=== PATIENT | female | born 1965 | race African-American/Black ===

== ENCOUNTER → 2017-07-09 | Outpatient (CLI) | payer OTHER ==
[2015-01-05 18:10] VITALS: BP 124/76
[~2017-07-09] MED LIST: ATOR20TA58 PO; CELE200C PO; CLOP75TA PO; FLUT1DIS IH; LANS30CA PO; LISI-334 PO; LORA10TA3 PO; MONT10TA9 PO; PROAIR HFA8.5 GM INH; SERT50TA PO; SOLI10TA2 PO; VARE1TAB5 PO
--- NOTE | 2017-07-09 18:10 | KCIC ---
Bilateral digital screening mammograms: Reason for examination: Routine screening. Comparison is made to previous studies dated 04/20/2014 and 03/01/2012. The skin and nipples show no abnormalities. No abnormal axillary lymph nodes are seen. The breast parenchyma shows scattered fibroglandular density. (Breast density: Category B.) There appears to be new 6 mm nodular density at the 11:30 C position of the left breast. Recommend further evaluation with ultrasound. There are no other dominant masses, suspicious calcifications or architectural distortions. Impression: 6 mm nodular density at the 11:30 C position of the left breast. Recommend further evaluation with ultrasound. BI-RADS Category 0: Incomplete. Ultrasound follow-up is recommended. "Our facility is accredited by the [employer] Mammography Program." This patient's information has been entered into a reminder system for the patient to be notified with the results of her examination and a target date for the next mammogram. Electronically signed by: Yahaira Macario MD (07/09/2017 6:07 PM) [id number]
== END | disposition home or self-care (01) ==
LOC: KCIC MAMMO 11:41
PROVIDERS: ATTEND Family Medicine
DX: Z12.31 Encounter for screening mammogram for malignant neoplasm of breast (principal)
CPT/HCPCS: G0202; 77067

== ENCOUNTER → 2017-07-15 | Outpatient (CLI) | payer OTHER ==
[2015-01-05 18:10] VITALS: BP 124/76
--- NOTE | 2017-07-15 14:29 | RAD ---
Examination:ultrasound left breast History: History of new left breast nodule Comparison: Mammogram from 07/09/2017. Findings: There is a hypoechoic mass measuring 6 mm identified in the left breast 8 cm from the nipple at 10:30 position with posterior acoustic shadowing. The margins of the mass appears slightly hyperechoic and angular. Impression: Suspicious finding. Recommend ultrasound-guided biopsy. BI-RADS Category 4. Suspicious finding. Patient was informed of the findings. Patient was entered into a mammographic recommend system for immediate recall. A voicemail was left at ordering physician's office.
== END | disposition home or self-care (01) ==
LOC: KCIC US 13:45
PROVIDERS: ATTEND Family Medicine
DX: R92.8 Other abnormal and inconclusive findings on diagnostic imaging of breast (principal)
CPT/HCPCS: 76641

== ENCOUNTER → 2017-08-19 | Outpatient (CLI) | payer OTHER ==
[~2017-08-19] VITALS: Ht 162.6 cm; Wt 70.3 kg
[~2017-08-19] MED LIST changes: +COLC0.6T34 PO; +PREG50CA PO
[2017-08-19 09:57] VITALS: BP 142/82
--- NOTE | 2017-08-19 16:21 | RAD ---
Indication suspect mass seen on recent mammography and ultrasound. Note is made of the screening breast examination 07/09/2017 in the targeted left breast ultrasound 07/15/2017. As a result of those examinations ultrasound-guided biopsy of a mass at the 10:30 position of the left breast was advised. Pulmonary ultrasound images were obtained and the known finding at the 10:30 position of the breast was identified. [employer] images were saved. Image guided biopsy was discussed with the patient. The risks of infection and bleeding were outlined. The small possibility of pneumothorax was discussed. The patient understood the risks and nature of the biopsy and wished to proceed. The skin was prepped and draped in the routine fashion. Local anesthesia was accomplished with 1% lidocaine. A 14-gauge coaxial biopsy system was utilized. After the first biopsy throw the target mass could not be identified again. It was felt that possibly the lidocaine infiltration obscured the target mass. A clip was then placed at the site of the biopsy. The patient was transferred to a dedicated mammographic suite and post clip deployment images were obtained. Those images are compared to the examination 07/09/2017. Particularly on the CC image the nodule seen on the study 07/09/2017 is no longer seen and the biopsy clip appears to be appropriately positioned. On the MLO and ML images no definite residual nodule is seen ( as on the screening exam). The patient was rescanned with ultrasound approximately 3 hours after the initial biopsy. In addition to images submitted by the technologist a targeted ultrasound examination was performed by me and I could not identify the mass seen on the initial images prior to the biopsy. The target mass may have represented a complicated cyst which was collapsed during the biopsy procedure. Assuming benign pathology from the tissue obtained a follow-up targeted ultrasound and mammogram of the left breast is suggested in 3 months to document stability. IMPRESSION: Nonvisualization of target mass after a single biopsy throw. Assuming benign pathology follow-up targeted ultrasound and mammography of the left breast is suggested in 3 months
--- NOTE | 2017-08-23 13:30 | PATHOLOGY ---
PATHOLOGY REPORT * * * * * * * * FINAL DIAGNOSIS: Left breast, core biopsies: - Focal fibrosis, chronic inflammation, and granulomatous inflammation. (JPM:pit; 08/23/2017) COMMENT: Sections of the left breast core biopsy reveal a segment of fibroadipose tissue showing focal fibrosis, chronic inflammation, and granulomatous inflammation. The latter focus appears to be associated with a microcystic focus of fat necrosis. The larger focus of fibrosis and chronic inflammation contains admixed large cells having fairly abundant amounts of eosinophilic to faintly pigmented cytoplasm and possessing round to ovoid nuclei containing small nucleoli. A limited panel of immunoperoxidase stains is obtained and yields the following results: AE1-AE3 (A1): Large cells negative. CD68 (A1): Large cells positive consistent with histiocytes. There is no evidence of malignancy. (JPM:pit; 08/23/2017) Special Stains: Immunoperoxidase for AE1-AEC and CD68. REPORT ELECTRONICALLY SIGNED BY: Simone Harmon M.D. DATE/TIME: 08/23/2017 13:29 * * * * * * * * GROSS PATHOLOGY: Received in formalin labeled "Cristal Brown, left breast," is a single needle core of yellow-hollis fibrofatty tissue measuring 2.1 x 0.2 x 0.2 cm in greatest dimensions. The tissue is submitted in its entirety in cassette A1. The cold ischemic time is 5 minutes. The total formalin fixation time is 12 hours and 15 minutes. (TSD; 08/19/2017) INITIAL CPT CODE(S): A; 89130, 49132, 99215 Professional services performed by [facility] at [address] [address] Technical services performed by [facility] at [address] [place] [address], [facility] [address] [address]. SPECIMEN(S) RECEIVED: A.Left breast mass CLINICAL HISTORY: Left breast mass PATIENT: CRISTAL BROWN V /AGE: 111/29/1965 (Age: 51) PATIENT #: [id number] ALT CASE #: SPECIMEN COLLECTION DATE: 08/19/2017 SPECIMEN RECEIVED DATE: 08/19/2017 [facility] - [address] [place] [address] - PHONE: [phone] * * * END OF REPORT * * *
== END | disposition home or self-care (01) ==
LOC: US 09:18
PROVIDERS: ATTEND Surgery
DX: N63.20 Unspecified lump in the left breast, unspecified quadrant (principal)
CPT/HCPCS: 76942; C1713; G0206; 19081; 77065

== ENCOUNTER → 2017-11-23 | Outpatient (CLI) | payer OTHER | END | disposition home or self-care (01) | LOC: KCIC MAMMO 08:25 | DX: N63.20 Unspecified lump in the left breast, unspecified quadrant (principal) | CPT/HCPCS: 76641; 77065 ==

== ENCOUNTER → 2018-07-20 | Outpatient (CLI) | payer OTHER ==
[2017-08-19 09:57] VITALS: BP 142/82
--- NOTE | 2018-07-20 11:02 | RAD ---
DATE: 07/20/2018 EXAM: DIGITAL DIAGNOSTIC BILATERAL, BREAST LEFT HISTORY: Biopsy follow-up COMPARISON: 11/23/2017, 08/19/2017, 07/09/2017 This study was interpreted with the benefit of Computerized Aided Detection (CAD). Breast Density: HETERO The breast parenchyma is heterogenously dense, which could reduce sensitivity of mammography. Breast parenchyma level C. FINDINGS: A breast biopsy marker is present at the 12:00 location in the left breast. The previous breast biopsy reportedly yielded benign findings. No new or enlarging breast densities seen in this region or within the right breast. There are smooth benign type calcifications in both breasts. No suspicious microcalcifications have developed. Left breast ultrasound, 11/23/2017: A targeted ultrasound exam of the left breast was performed centered at the 1:00 location. Review of the previous ultrasound study shows that the faint area of concern at that time was at the 1:00 location, although inadvertently dictated as being at the 10:00 location. Today we also scanned the 10:00 location for completeness. Heterogeneous fibroglandular shadows are present. No solid mass or unusual fluid collection is seen. The tiny hypoechoic area noted at the 1:00 location in the 11/23/2017 exam could not be redemonstrated. IMPRESSION: 1. Stable mammograms without evidence of malignancy. 2. The possible tiny left breast lesion seen sonographically on 11/23/2017 could not be redemonstrated. 3. Routine yearly mammographic follow-up is suggested. BI-RADS CATEGORY: 2 BENIGN FINDING(S) RECOMMENDED FOLLOW-UP: 12M 12 MONTH FOLLOW-UP PQRS compliance statement: Patient information was entered into a reminder system with a target due date for the next mammogram. Mammography is a sensitive method for finding small breast cancers, but it does not detect them all and is not a substitute for careful clinical examination. A negative mammogram does not negate a clinically suspicious finding and should not result in delay in biopsying a clinically suspicious abnormality. "Our facility is accredited by the [employer] Mammography Program."
== END | disposition home or self-care (01) ==
LOC: MAMMO 10:03
PROVIDERS: ATTEND Surgery
DX: R92.8 Other abnormal and inconclusive findings on diagnostic imaging of breast (principal); I10 Essential (primary) hypertension; E78.00 Pure hypercholesterolemia, unspecified; Z86.73 Personal history of transient ischemic attack (TIA), and cerebral infarction without residual deficits
CPT/HCPCS: 76641; 77066

== ENCOUNTER → 2018-08-23 | Day surgery (SDC) | payer OTHER ==
[~2018-08-23] MED LIST changes: +IV RINGERS,LACTATED 1000ML 1,000 ML IV SCH; +MIDAZOLAM HCL/PF 5 MG/5 ML VIAL. IV ONE; +MIDAZOLAM HCL/PF 5 MG/5 ML VIAL. ONE; +diphenhydrAMINE 50 MG/ML VIAL IV ONE; +diphenhydrAMINE 50 MG/ML VIAL ONE; +fentaNYL PF VIAL 100 MCG/2 ML VIAL IV ONE; +fentaNYL PF VIAL 100 MCG/2 ML VIAL ONE
[2018-08-23 17:00] VITALS: BP 153/85
== END | disposition home or self-care (01) ==
LOC: ENDOS 14:51
PROVIDERS: ATTEND Internal Medicine Gastroenterology
DX: Z12.11 Encounter for screening for malignant neoplasm of colon (principal); D12.2 Benign neoplasm of ascending colon; K57.30 Diverticulosis of large intestine without perforation or abscess without bleeding; K64.0 First degree hemorrhoids; J45.909 Unspecified asthma, uncomplicated; Z86.73 Personal history of transient ischemic attack (TIA), and cerebral infarction without residual deficits; F32.9 Major depressive disorder, single episode, unspecified; K21.9 Gastro-esophageal reflux disease without esophagitis; M19.90 Unspecified osteoarthritis, unspecified site; I10 Essential (primary) hypertension; E78.00 Pure hypercholesterolemia, unspecified; Z98.890 Other specified postprocedural states; Z86.010 Personal history of colon polyps; Z80.0 Family history of malignant neoplasm of digestive organs; Z88.0 Allergy status to penicillin; Z98.51 Tubal ligation status
CPT/HCPCS: 45385; 88305; J1200; J2250; J3010; 45380

== ENCOUNTER → 2020-08-13 | Outpatient (CLI) | payer MEDICAID ==
[2018-08-23 17:00] VITALS: BP 153/85
[~2020-08-13] MED LIST changes: +ALBU2.5V8 INH; -IV RINGERS,LACTATED 1000ML 1,000 ML IV SCH; -MIDAZOLAM HCL/PF 5 MG/5 ML VIAL. IV ONE; -MIDAZOLAM HCL/PF 5 MG/5 ML VIAL. ONE; +MONT10TA49 PO; -MONT10TA9 PO; -PREG50CA PO; +PREG50CA91 PO; -PROAIR HFA8.5 GM INH; -diphenhydrAMINE 50 MG/ML VIAL IV ONE; -diphenhydrAMINE 50 MG/ML VIAL ONE; -fentaNYL PF VIAL 100 MCG/2 ML VIAL IV ONE; -fentaNYL PF VIAL 100 MCG/2 ML VIAL ONE
--- NOTE | 2020-08-13 14:51 | KCIC ---
Bilateral digital screening mammograms: Reason for examination: Routine screening. Comparison is made to previous studies dated back to 04/20/2014. Interpretation was made with the benefit of CAD. The skin and nipples show no abnormalities. No abnormal axillary lymph nodes are seen. The breast parenchyma is heterogeneously dense. (Breast density: Category C) There are small nodular parenchymal densities again seen bilaterally which are stable. There are no new dominant masses, suspicious calcifications or architectural distortion. A few benign calcifications are again seen. Biopsy clip remains present on the left. Impression: No evidence of malignancy. Recommend routine screening. Your patient's mammogram demonstrates that she has dense breast tissue (breast density category C or D), which could hide abnormalities, and if she has other risk factors for breast cancer that have been identified, she might benefit from supplemental screening tests that may be suggested by you as her ordering physician. Dense breast tissue, in and of itself, is a relatively common condition. Therefore, this information is not provided to cause undue concern, but rather to raise your awareness and to promote discussion with your patient regarding the presence of other risk factors, in addition to dense breast tissue. Your patient's mammography results will be sent to her. BI-RADS Category 2: Benign. "Our facility is accredited by the [employer] Mammography Program." This patient's information has been entered into a reminder system for the patient to be notified with the results of her examination and a target date for the next mammogram. Electronically signed by: Yahaira Macario MD (08/13/2020 2:48 PM) [id number]
== END ==
LOC: KCIC MAMMO 12:39
PROVIDERS: ATTEND Family Medicine
DX: Z12.31 Encounter for screening mammogram for malignant neoplasm of breast (principal); N64.89 Other specified disorders of breast
CPT/HCPCS: 77067